=== PATIENT | male | born 1980 | race Caucasian/White ===

== ENCOUNTER 2017-04-24 03:28 | Emergency (ER) | payer OTHER ==
[~2017-04-24] VITALS: Ht 172.7 cm; Wt 190.0 kg
[2017-04-24] MEDS ORDERED: PERCOCET 5MG/325MG TAB PO ONE (06:30)
[2017-04-24] MEDS ORDERED: diazePAM 5 MG TAB PO ONE (06:30)
[2017-04-24] MEDS ORDERED: KETOROLAC 60 MG/2 ML VIAL (J1885) IM ONE (06:30)
[2017-04-24] MEDS ORDERED: NAPR500T PO (06:34)
[2017-04-24] MEDS ORDERED: SKEL800T97 PO (06:34)
[2017-04-24 07:16] VITALS: BP 136/80
== END 2017-04-24 07:19 | disposition home or self-care (01) ==
LOC: M ED 03:52
DX: S13.4XXA Sprain of ligaments of cervical spine, initial encounter (principal); M54.12 Radiculopathy, cervical region; X50.0XXA Overexertion from strenuous movement or load, initial encounter; Y92.89 Other specified places as the place of occurrence of the external cause; Y93.B3 Activity, free weights; Y99.8 Other external cause status
CPT/HCPCS: 96372; 99282; J1885